=== PATIENT | female | born 1965 | race Caucasian/White ===

== ENCOUNTER 2022-01-19 06:24 | Day surgery (SDC) | payer BC ==
[2022-01-16 10:00] VITALS: BMI 31.9
[2022-01-19] MEDS ORDERED: Lidocaine 1% MPF 2 ML VIAL ONE (06:53)
[2022-01-19] MEDS ORDERED: Lidocaine 1% PF 5 ML VIAL ONE (08:30)
[2022-01-19] MEDS ORDERED: PROPOFOL 40 ML ONE (08:30)
[2022-01-19] MEDS ORDERED: Albuterol Sulfate HFA (OR ONLY) ONE (08:50)
[2022-01-19] MEDS ORDERED: PROPOFOL 20 ML ONE (08:51)
== END 2022-01-19 09:45 | disposition home or self-care (01) ==
LOC: CSHSDC 06:24
PROVIDERS: ATTEND Internal Medicine Gastroenterology
PROC: 0DBN8ZZ Excision of Sigmoid Colon, Via Natural or Artificial Opening Endoscopic (ICD-10-PCS; principal; 2022-01-19)
DX: Z08 Encounter for follow-up examination after completed treatment for malignant neoplasm (principal); Z12.11 Encounter for screening for malignant neoplasm of colon; D12.5 Benign neoplasm of sigmoid colon; Z85.038 Personal history of other malignant neoplasm of large intestine; I10 Essential (primary) hypertension; E78.5 Hyperlipidemia, unspecified; G47.30 Sleep apnea, unspecified; Z86.73 Personal history of transient ischemic attack (TIA), and cerebral infarction without residual deficits; K57.30 Diverticulosis of large intestine without perforation or abscess without bleeding
CPT/HCPCS: 88305; J2704